=== PATIENT | female | born 1945 | race Caucasian/White ===

== ENCOUNTER 2020-09-17 15:42 | Observation (INO) | payer MEDICARE, OTHER ==
[~2020-09-17] VITALS: Ht 147.3 cm; Wt 70.4 kg
[~2020-09-17 15:42] MED LIST: CIPROFLOXACN500 MG PO; LEVAQUIN500 MG PO; LOTREL1 CA2 PO; NEXIUM20 M1 PO; PYRIDIUM200 MG PO; SYNTHROID100 MCG PO
--- NOTE | 2020-09-17 15:52 | NUR ---
PATIENT TO ROOM VIA WHEELCHAIR FOR BEDSIDE TRIAGE.
--- NOTE | 2020-09-17 16:45 | NUR ---
HAT AND CAP DRYING ROOM ATTENDANT BEDSIDE FOR LAB DRAW. PT TOLERATED WELL. STREP SWAB COLLECTED.
[2020-09-17 17:01] LABS: HEMOGLOBIN 12.3 g/dl (12.0-16.0); IMMATURE GRANULOCYTES 0.6 % (0.0-5.0); MEAN CELL VOLUME 87.8 fL CALC (80.0-100.0); MEAN CORPUSCULAR HGB 27.7 pG CALC (26.0-32.0); MEAN CORPUSCULAR HGB CONC 31.5 g/dL CAL (32.0-36.0); NEUT# 4.88 thou/uL (2.00-7.15); RED BLOOD COUNT 4.44 mill/uL (4.20-5.60); RED CELL DISTRI WIDTH 13.5 % (11.5-15.5)
[2020-09-17 17:19] LABS: ALBUMIN 4.2 g/dL (3.2-5.0); ALKALINE PHOSPHATASE 88 u/l (38-126); ANION GAP 10 (6-22 (CALC)); BILIRUBIN, TOTAL 0.6 mg/dL (0.0-1.4); BUN 12 mg/dL (8-23); BUN/CREATININE RATIO 17 (12-20 (CALC)); CARBON DIOXIDE 27 mmol/l (22-30); CHLORIDE 101 mmol/l (95-108); CREATININE 0.7 mg/dL (0.5-1.0); GFR > 60 ML/MIN (>=60 (CALC)); GFR FOR AFR.AMER. > 60 ML/MIN (>=60 (CALC)); POTASSIUM 3.4 mmol/l (3.5-5.1); SGOT/AST 71 u/l (9-36); SODIUM 134 mmol/l (137-146); TOTAL PROTEIN 7.5 g/dL (6.3-8.2)
--- NOTE | 2020-09-17 17:29 | NUR ---
ABD DRAWN BY RT. PT RESTING ON STRETCHER IN NO APPARENT DISTRESS. VERALIZES NO NEEDS AT THIS TIME. CALL LIGHT WITHIN [facility].
[2020-09-17 17:31] LABS: MYOGLOBIN 105 ng/mL (0 - 62)
--- NOTE | 2020-09-17 18:14 | NUR ---
DR BOO IN ROOM SPEAKING WITH PT REGARDING RESULTS.
[2020-09-17] MEDS ORDERED: SYNTHROID100 MCG PO (18:15)
[2020-09-17] MEDS ORDERED: HYZAAR1 TAB PO (18:17)
--- NOTE | 2020-09-17 18:19 | NUR ---
IN ROOM WITH DR BOO PT BECAME UNRESPONSIVE, PALE AND DIAPHORETIC. BLOOD PRESSURE-- 77/36 HR 52. SECONDAY IV INTIIATED # 20 TO RIGHT AC. PLACED ON NASAL CANNULA @ 3L NC.
--- NOTE | 2020-09-17 18:21 | NUR ---
PT AROUSES EASILY AND RESPONSVIE. PERRL. SKIN COOL AND DIAPHORETIC. IVF INTIATED TO LEFT WRIST SITE. PT STATES " I JUST FELT DIZZY LIKE I WAS GOING TO PASS OUT." @ 1826: PT'S BLOOD PRESSURE 113/49 HR 82. PT AWAKE AND RESPONSVIE, CONVERSING WITH STAFF. ACCUCHECKK OBTAINED--121.
--- NOTE | 2020-09-17 18:26 | NUR ---
PT ALERT AND ORITENTED X 3. RESP EVEN AND UNLABORED ON NASAL CANNULA @ 3L. PERRL @ 3MM TO LEFT AND RIGHT EYE AND BRISK. CARDIAC MONTIOR IN PLACE. IVF INFUSING
[2020-09-17] MEDS ORDERED: SINGULAIR10 MG PO (18:33)
--- NOTE | 2020-09-17 18:53 | NUR ---
REPORT GIVEN TO [place] RN, CARE RELINQUISHED
--- NOTE | 2020-09-17 19:00 | NUR ---
W/P/D SKIN SR NO ECTOPY PT IS ON O2 2L/SUPERVISOR TUMBLING AND ROLLING IV FLUIDS INFUSING RAC WITHOUT REMARK.SHEET COVERING APPLIED TO PT.
--- NOTE | 2020-09-17 19:25 | NUR ---
PT STATES SHE CAN BREATHE EASIER NOW.W/P/D SKIN SR NO ECTOPY NO ST T CHANGES
--- NOTE | 2020-09-17 19:35 | NUR ---
PHONE REPORT TO NURSE BERNAL IN ICU
--- NOTE | 2020-09-17 19:40 | NUR ---
PT TRANSPORTED VIA STRETCHER ON O2 TO ICU IN STABLE CONDITION
--- NOTE | 2020-09-17 19:55 | NUR ---
PATIENT ARRIVES VIA STRETCHER ACCOMPANIED BY AG ER NURSE. PATIENT ABLE TO SCOOT TO ICU BED 4. NO CUTE DISTRES SHOWN. ONLY COMPLAINS OF NON PRODUCTIVE COUGH, NO SOB NOTED. ON 2 L/MIN NC, O2 SAT 97%. ALERT AND ORIENTED X4. NURSE ASSESSMENT PERFORMED. ANSWERS ALL QUESTIONS AND FOLLOWS ALL COMMANDS. MEDICATION LIST HANDED TO ME. ADMISSION QUESTIONS ALL ANSWERED. RAC IV 20 G INTACT, SALINE LOCKED. PENICILLIN IS ONLY ALLERGY. REPORT SHE HAS BEEN STRESSED BEACUSE HER SON IS IN AN ICU WITH COVID-19 AND AND BLOOD CLOTS, HE IS [place]. SHE LIVES TA HOME WITH HER AND DOGS, IS INDEPENDENT AND DRIVES. REPORTS SHE HAS A NICOLE OCCASSIONALLY, DENIES SMOKING AND SUBSTANCE ABUSE. REPORTS SHE HAS HAD DIARRHEA TODAY BUT NOTHING HERE AT THE ER. SKIN IS INTACT. REPORTS LOW APPETTITE, BUT DOES ACCEPT A MEAL TONIGHT. BOTH PNA VACCINES IN 2018 AND FLU VACCINE IN JUNE 2020. IS COOPERATIVE AND CONVERSTATES. SR ON TELEMETRY, HR IN 90'S. BP 130'S SYSTOLIC. AFEBRILE, SLE FREPOSITIONS. CALL LIGHT WITHIN REACH. POC DISCUSSED.
[2020-09-17 20:00] VITALS: BP 138/63
[2020-09-17 20:15] VITALS: BP 138/57
[2020-09-17 20:30] VITALS: BP 143/60
[2020-09-17] MEDS ORDERED: SYNTHROID88 MCG PO (20:35)
[2020-09-17 20:45] VITALS: BP 131/73
--- NOTE | 2020-09-17 20:46 | NUR ---
HOT DINNER MEAL PROVIDED TO PATIENT, DIET KAREY DAVID TOO. PATIENT SITS ON THE SIDE OF THE BED. NO ACUTE DISTRESS SHOWN. CALL LIGHT WITHIN REACH.
[2020-09-17 21:00] VITALS: BP 138/63
--- NOTE | 2020-09-17 22:02 | NUR ---
ASSISTED PATIENT TO [facility] [place], HAS STEADY GAIT. 300 ML OF URINE, YELLOW/CLEAR. UA SAMPLE COLLECTED.
[2020-09-17 23:30] VITALS: BP 136/58
[2020-09-17 23:34] LABS: URINE BILIRUBIN - DIPSTICK NEGATIVE (NEGATIVE); URINE BLOOD DIPSTICK NEGATIVE (NEGATIVE); URINE COLOR YELLOW; URINE GLUCOSE - DIPSTICK NEGATIVE (NEGATIVE); URINE KETONE NEGATIVE (NEGATIVE); URINE LEUK ESTERASE NEGATIVE (NEGATIVE); URINE NITRITE - DIPSTICK NEGATIVE (Negative); URINE PROTEIN - DIPSTICK NEGATIVE (NEG-TRACE); URINE SPECIFIC GRAVITY <=1.005; URINE UROBILINOGEN - DIPSTICK 0.2 E.U./dL (0.2)
[2020-09-18] VITALS (11 sets, daily range): BP systolic 118–161; BP diastolic 49–72
--- NOTE | 2020-09-18 00:06 | NUR ---
PATIENT ASSITED STANDBY TO BSC TO VOID. IV FLUIDS AND ANTIBITOIC INFUSING NOW. NO COMPLAINTS. CALL LIGHT WITHIN REACH.
--- NOTE | 2020-09-18 01:50 | NUR ---
PATIENT AWAKENS EASILY WITH VERBAL STIMULI, AFEBRILE. NO ACUTE DISTRESS SHOWN. CALL LIGHT WITHIN REACH.
--- NOTE | 2020-09-18 02:14 | NUR ---
PATIENT ASSISTED TO BSC TO VOID. NO WSAFELY BACK IN BED. NO ACUTE DISTRESS SHOWN. CALL LIHT WITHIN REACH.
--- NOTE | 2020-09-18 06:16 | NUR ---
PATIENT WAS EDUCATED ON LAYING PRONE AND WAS ENCOURAGED TO LAY PRONE THROUGH THE NIGHT, PATIENT REPORTS SHE IS UNABLE TO DUE TO SHE FEELS LIKE SHE CAN'T BREATHE.
--- NOTE | 2020-09-18 06:45 | NUR ---
PATIENT IS AWAKE, ASSISTED TO BSC. PATIENT HAS BEEN CHANGING HER PULL UP BRIEFS THROUGH THE NIGHT. PATIENT CONVERSATES, HAS NO COMPLAINTS. SUPERVISOR PLATE PASTING NOT ABLE TO GET BLOOD FROM PATIENT THIS AM, I NOTIFIED PATIENT TO EXPECT ANOTHE RLAB TECH THIS AM. CALL LIGHT WITHIN REACH.
--- NOTE | 2020-09-18 07:49 | NUR ---
PT RESTING IN BED, NO SIGNS OF DISTRESS NOTED, RESP EVEN AND UNLABORED. PT ALERT AND ORIENTED X3, DISCUSSED POC, NOTED WHEEZES, DISCUSSED INHALER, PT MEDICATED PER MAR. ASSISTED PT TO SIDE OF BED FOR BREAKFAST, ASSESSMENT COMPLETED, CALL LIGHT IN REACH,CONTINUE TO MONITOR.
[2020-09-18 07:56] LABS: HEMATOCRIT 37.8 % (37.0-47.0); IMMATURE GRANULOCYTES 0.3 % (0.0-5.0); MEAN CELL VOLUME 87.9 fL CALC (80.0-100.0); MEAN CORPUSCULAR HGB 27.9 pG CALC (26.0-32.0); MEAN CORPUSCULAR HGB CONC 31.7 g/dL CAL (32.0-36.0); NEUT# 2.44 thou/uL (2.00-7.15); RED BLOOD COUNT 4.3 mill/uL (4.20-5.60); RED CELL DISTRI WIDTH 13.6 % (11.5-15.5)
[2020-09-18 08:22] LABS: ALBUMIN 3.6 g/dL (3.2-5.0); ALKALINE PHOSPHATASE 75 u/l (38-126); ANION GAP 8 (6-22 (CALC)); BUN 13 mg/dL (8-23); BUN/CREATININE RATIO 20 (12-20 (CALC)); C-REACTIVE PROTEIN 2.8 mg/dL (0-0.9); CARBON DIOXIDE 28 mmol/l (22-30); CHLORIDE 110 mmol/l (95-108); CREATININE 0.7 mg/dL (0.5-1.0); GFR > 60 ML/MIN (>=60 (CALC)); GFR FOR AFR.AMER. > 60 ML/MIN (>=60 (CALC)); POTASSIUM 4.2 mmol/l (3.5-5.1); SGOT/AST 53 u/l (9-36); SODIUM 142 mmol/l (137-146); TOTAL PROTEIN 6.2 g/dL (6.3-8.2)
[2020-09-18 08:23] LABS: BILIRUBIN, TOTAL 0.3 mg/dL (0.0-1.4)
--- NOTE | 2020-09-18 08:31 | NUR ---
MD AT BEDSIDE TO ASSESS PT AND DISCUSS POC
[2020-09-18] MEDS ORDERED: PREDNISONE10 MG PO (08:43)
[2020-09-18] MEDS ORDERED: ZITHROMAX250 MG PO (08:43)
--- NOTE | 2020-09-18 09:00 | NUR ---
PT RESTING IN BED, DISCUSSED PLANS FOR DISCHARGE AND DUE TO PHARMACY BEING CLOSED PT TO RECEIVE ANTIBIOTICS AT HOSPITAL PRIOR TO DISCHARGE, PT AGREES. ASSISTED PT TO BSC, VOIDED. CALL LIGHT IN REACH,CONTINUE TO MONITOR.
--- NOTE | 2020-09-18 12:20 | NUR ---
PT CALLED C/O IV SITE PAIN, NOTED IV INFILTRATED, IV DC'D CATHETER INTACT. CALL MADE TO MD TYPEWRITERS FUNCTIONAL TESTER, PT DECLINED NEW IV SITE DUE TO BEING A HARD STICK,NEW ORDERS RECEIVED, PT MAY BE DISCHARGED ONCE MEDICATED. CALL LIGHT IN REACH,CONTINUE TO MONITOR.
--- NOTE | 2020-09-18 13:00 | NUR ---
PT RESTING IN BED, DISCUSSED DISCHARGE INSTRUCTIONS, MEDICATED PER MAR. PT DRESSED, AND AWAITING TO PICK HER UP. CONTINUE TO MONITOR.
--- NOTE | 2020-09-18 13:15 | NUR ---
Discharge instructions given. Patient verbalizes understanding of same. Discharged in stable condition via Wheelchair to Home with spouse. All belongings sent with pt.
--- NOTE | 2020-09-21 14:07 | NUR ---
Post discharge pneumonia follow up calll completd 09/21.20. Pt. states she is doing better. She is still fatigued and has a cough, but has not had a fever or chills. She obtained medication prescribed at discharge and has taken them without difficulty. She has not made a follow up appt yet, but will do so. Pt. had glowing comments about the staff and the care she received. She i. The patient states she feels forunate to have such a 1st class facility [place] from [place]. Thanks to [email or web address]
== END 2020-09-18 13:15 | disposition home or self-care (01) ==
LOC: ED 15:42 → ED-I 18:15 → ED 18:47 → ICU 18:48
PROVIDERS: Emergency Medicine; ADMIT Internal Medicine; ATTEND Internal Medicine
DX: U07.1 COVID-19 (principal); J45.901 Unspecified asthma with (acute) exacerbation; I95.9 Hypotension, unspecified; I10 Essential (primary) hypertension; E03.9 Hypothyroidism, unspecified
CPT/HCPCS: J1650